=== PATIENT | female | born 2000 | race Caucasian/White ===

== ENCOUNTER 2020-07-26 14:55 | Emergency (ER) | payer MEDICAID, OTHER ==
[~2020-07-26] VITALS: Ht 170.2 cm; Wt 86.2 kg
[~2020-07-26 14:55] MED LIST: AZIT-21 PO
[2020-07-26 15:10] VITALS: BP 129/82
--- NOTE | 2020-07-26 15:48 | ED Lower Extremity ---
General Chief Complaint: Lower Extremity Stated Complaint: R ANKLE PAIN Nursing Triage Note: PT AMB TO TRIAGE WITH COMPLAINT OF RIGHT ANKLE PAIN AFTER ROLLING ANKLE WALKING DOWN STAIRS. HAS BEEN TAKING IBUPROFEN FOR PAIN. Nursing Sepsis Screen: No Definite Risk History of Present Illness Date Seen by Provider: Jul 26, 2020 Time Seen by Provider: 15:10 Initial Comments 20-year-old female reports twisting her right ankle yesterday morning. She had difficulty ambulating on it yesterday. She is doing better today she has been taking Tylenol and ibuprofen for pain. She denies any previous history of injuries to her right lower extremity. Onset: yesterday Pain/Injury Location: right ankle Method of Injury: twisted Modifying Factors: Improves With Rest Allergies and Home Medications Allergies Coded Allergies: Cephalosporins (Verified Allergy, Severe, HIVES, 02/06/14) Penicillins (Verified Allergy, Severe, HIVES, 02/06/14) Home Medications Azithromycin 250 Mg Tab, 2 TAB PO TODAY Prescribed by: SUNDEEP FLORES on 02/06/14 1611 Patient Home Medication List Home Medication List Reviewed: Yes Review of Systems Constitutional: no symptoms reported, see HPI Musculoskeletal: see HPI, joint pain (Right ankle) All Other Systems Reviewed Negative Unless Noted: Yes Past Cdzrgpj-Nwtvwz-Xffgba Hx Past Med/Social Hx: Reviewed Nursing Past Med/Soc Hx Patient Social History Alcohol Use: Occasionally Uses Recreational Drug Use: No Smoking Status: Never a Smoker Recent Foreign Travel: No Contact w/Someone Who Travel: No Recent Infectious Disease Expo: No Recent Hopitalizations: No Immunizations Up To Date Tetanus Booster (TDap): Unknown PED Vaccines UTD: Yes Seasonal Allergies Seasonal Allergies: No Past Medical History Surgeries: No Respiratory: No Cardiac: No Neurological: No Reproductive Disorders: No Sexually Transmitted Disease: No Genitourinary: No Gastrointestinal: No Musculoskeletal: No Endocrine: No HEENT: No Cancer: No Psychosocial: Yes Depression Integumentary: No Blood Disorders: No Physical Exam Vital Signs Vital Signs - First Documented 07/26/20 15:10 Temp 36.9 Pulse 107 Resp 16 B/P (MAP) 129/82 (98) Pulse Ox 99 O2 Delivery Room Air Capillary Refill : Less Than 3 Seconds Height, Weight, BMI Height: 5'4" Weight: 130lbs. oz. 58.603231qs; 29.00 BMI Method:Stated General Appearance: WD/WN, mild distress Cardiovascular: normal peripheral pulses, regular rate, rhythm Respiratory: chest non-tender, lungs clear, normal breath sounds Ankles: right ankle normal range of motion, right ankle bone tenderness (Lateral), right ankle ecchymosis (Lateral), right ankle soft tissue tenderness Neurologic/Tendon: normal sensation, normal motor functions, normal tendon functions Neurologic/Psychiatric: no motor/sensory deficits, alert, normal mood/affect, oriented x 3 Skin: normal color, warm/dry Progress/Results/Core Measures Results/Orders My Orders Orders - KRISTI MCGRATH Urine Bedside (07/26/20 15:13) Ankle, Right, 3 Views (07/26/20 15:13) Vital Signs/I&O 07/26/20 15:10 Temp 36.9 Pulse 107 Resp 16 B/P (MAP) 129/82 (98) Pulse Ox 99 O2 Delivery Room Air Blood Pressure Mean: 98 Diagnostic Imaging Diagonstic Imaging: Xray Plain Films/CT/US/NM/MRI: ankle Comments NAME: JOSLYN HAYES [facility] REC#: [id number] PT STATUS: REG ER : 2000 PHYSICIAN: KRISTI MCGRATH ADMIT DATE: 07/26/20/ER Draft Date of Exam:07/26/20 ANKLE, RIGHT, 3 VIEWS INDICATION: Injury to right ankle. AP, oblique, and lateral views of the right ankle are obtained. No fracture or acute bony abnormality seen. Joint spaces are unremarkable. IMPRESSION: Negative right ankle. Dictated on workstation # [id number] Dict: 07/26/20 1545 Trans: 07/26/20 1546 [facility] [id number] Interpreted by: WILLIE ESCOBEDO MD Electronically signed by: Reviewed: Reviewed by Me Departure Impression Primary Impression: Right ankle sprain Qualified Codes: S93.491A - Sprain of other ligament of right ankle, initial encounter Disposition: 01 HOME, SELF-CARE Condition: Improved Departure-Patient Inst. Referrals: [facility] [place] NO,LOCAL PHYSICIAN (PCP) Primary Care Physician Patient Instructions: Ankle Sprain (DC) Add. Discharge Instructions: Ice to right ankle 20 minutes every 2 hours while awake. Alternate between ibuprofen 600 mg and Tylenol 650 mg every 4 hours for pain and swelling. Use Jensen wrap for swelling over the next 2 to 3 days. Follow-up with your primary care provider if symptoms are not improving or worsen. Return to the emergency department for new, urgent healthcare needs. All discharge instructions reviewed with patient and/or family. Voiced understanding. KRISTI MCGRATH Jul 26, 2020 15:47
== END 2020-07-26 15:54 | disposition home or self-care (01) ==
LOC: EDUNIT# 14:55 → ER 15:00
DX: S93.491A Sprain of other ligament of right ankle, initial encounter (principal); Z88.0 Allergy status to penicillin; Z88.1 Allergy status to other antibiotic agents; X50.1XXA Overexertion from prolonged static or awkward postures, initial encounter
CPT/HCPCS: 73610; 84703